=== PATIENT | male | born 1980 | race Caucasian/White ===

== ENCOUNTER 2022-01-29 16:50 | Emergency (ER) | payer SELFPAY ==
[~2022-01-29] VITALS: Ht 175.3 cm; Wt 65.8 kg
[2022-01-29 17:07] VITALS: BP 165/117
[2022-01-29] MEDS ORDERED: KETOROLAC 30 MG/ML VIAL IVP ONE (17:25)
[2022-01-29] MEDS ORDERED: ONDANSETRON 4 MG/2 ML VIAL IVP ONE (17:25)
[2022-01-29] MEDS ORDERED: diphenhydrAMINE 50 MG/ML VIAL IVP ONE (17:25)
[2022-01-29] MEDS ORDERED: NACL 0.9% 1,000 ML IV ONE (17:25)
[2022-01-29 18:07] LABS: BASOPHILS # (AUTO) 0.1 K/uL (0.00-0.22); BASOPHILS % (AUTO) 1.3 % (0.0-2.0); EOSINOPHILS # (AUTO) 0.2 K/uL (0-0.4); EOSINOPHILS % (AUTO) 3.7 % (0.0-4.0); HEMATOCRIT 46.4 % (36-52); HEMOGLOBIN 15.8 g/dL (12.0-18.0); LYMPHOCYTES # (AUTO) 1.7 K/uL (2.0-11.5); LYMPHOCYTES % (AUTO) 28.5 % (20.5-51.1); MEAN CORPUSCULAR HEMOGLOBIN 29 pg (27-31); MEAN CORPUSCULAR HGB CONC 34 g/dL (33-37); MEAN CORPUSCULAR VOLUME 86.4 fL (80-94); MONOCYTES # (AUTO) 0.5 K/uL (0.8-1.0); MONOCYTES % (AUTO) 8.2 % (1.7-9.3); NEUTROPHILS # (AUTO) 3.6 K/uL (1.8-7.7); NEUTROPHILS % (AUTO) 58.3 % (42.2-75.2); PLATELET COUNT (AUTO) 233 K/uL (140-450); RED BLOOD CELL COUNT(AUTO) 5.37 MIL/uL (4.20-6.10); WHITE BLOOD COUNT (AUTO) 6.1 K/uL (4.8-10.8)
[2022-01-29 18:35] LABS: ALBUMIN 3.5 g/dL (3.4-5.0); ANION GAP 13.6 (8-16); CARBON DIOXIDE 25.9 mmol/L (21-32); POTASSIUM 3.5 mmol/L (3.5-5.1); TOTAL BILIRUBIN 1.2 mg/dL (0.0-1.0)
[2022-01-29 19:04] LABS: CREATININE 1.2 mg/dL (0.6-1.3)
[2022-01-29] MEDS ORDERED: IBUP-2213 PO (19:10)
[2022-01-29] MEDS ORDERED: ONDA-188 PO (19:10)
[2022-01-29] MEDS ORDERED: METH-1681 PO (19:10)
--- NOTE | 2022-01-29 19:14 | NUR ---
42 y/o male, pt presenting to ed with c.o left arm pain, numbness, mortensen and cp for 1 day. chest pain is nonexertional and nonpleuritic. a&ox4, ambulates with steady gait. denies cough, sore throat, fevers, sob and chills. pmh: htn nka med: denies
[2022-01-29] MEDS ORDERED: KETOROLAC 30 MG/ML VIAL ONE (19:27)
[2022-01-29] MEDS ORDERED: ONDANSETRON 4 MG/2 ML VIAL ONE (19:27)
[2022-01-29] MEDS ORDERED: diphenhydrAMINE 50 MG/ML VIAL ONE (19:27)
--- NOTE | 2022-01-29 19:39 | NUR ---
Patient appears to be resting comfortably in bed. Vital Signs within normal limits. Respirations even and unlabored.
--- NOTE | 2022-01-29 20:45 | NUR ---
Patient discharged with v/s stable. Written and verbal after care instructions given and explained. Patient alert, oriented and verbalized understanding of instructions. Ambulatory with steady gait. All questions addressed prior to discharge. ID band removed. Patient advised to follow up with PMD. Rx sent to pharmacy. Patient educated on indication of medication including possible reaction and side effects. Opportunity to ask questions provided and answered.
[2022-01-29 21:00] VITALS: BP 120/70
== END 2022-01-29 20:45 | disposition home or self-care (01) ==
LOC: MED 16:50
DX: I10 Essential (primary) hypertension (principal); Z79.899 Other long term (current) drug therapy
CPT/HCPCS: 36415; 71045; 80053; 84484; 85025; 93005; 96361; 96374; 96375; 99285; J1200; J1885; J2405; Q0092; J7030